=== PATIENT | female | born 1980 | race Caucasian/White ===

== ENCOUNTER 2018-02-10 12:25 | Outpatient (CLI) | payer BC ==
--- NOTE | 2018-02-10 15:53 | MRI ---
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 TECHNIQUE: Multiple sequences obtained in axial, sagittal, and coronal planes; pre and post IV injection of gado linium-based contrast agent: MultiHance 16 mL. In addition to standard sequences, sagittal CSF flow study was performed through the craniocervical j unction. FINDINGS: The ventricles are normal in size and configuration. There is no major intraaxial signal abnormality , restricted diffusion, abnormal intraaxial enhancement, mass, midline shift or any other mass effect , recent intraaxial hemorrhage, or extraaxial fluid collection. There is a suboccipital craniotomy d efect, along with resection of the posterior arch of C1, and surgical absence of bilateral cerebellar tonsils. On the phase contrast sagittal images, there is robust CSF flow anterior to the brainstem and upper cervical spinal cord. The flow posterior to the spinal cord and posterior to the brainstem is less robust but is present. IMPRESSION: 1. Status post suboccipital craniotomy for treatment of Chiari I malformation. 2. There is cerebrospinal fluid flow anterior to the cervicomedullary junction. There is apparently weaker cerebrospinal fluid flow posterior to it. 3. Otherwise, the rest of the brain is normal. jn[] POS: [facility]
== END 2018-02-10 12:26 | disposition home or self-care (01) ==
LOC: MRI 12:25
DX: R51 Headache (principal); G93.5 Compression of brain; Z98.890 Other specified postprocedural states
CPT/HCPCS: 70553